=== PATIENT | female | born 1940 | race Two or more races ===

== ENCOUNTER 2018-05-31 07:20 | Outpatient (CLI) | payer OTHER | END 2018-05-31 09:20 | disposition home or self-care (01) | LOC: NUCLEAR 07:20 | DX: I10 Essential (primary) hypertension (principal); R07.89 Other chest pain; R94.31 Abnormal electrocardiogram [ECG] [EKG] | CPT/HCPCS: 78452; 93017; A9500; J0153 ==

== ENCOUNTER 2020-07-22 12:28 | Outpatient (CLI) | payer OTHER | END 2020-07-22 12:30 | disposition home or self-care (01) | LOC: SONOGRAMA 12:28 | PROVIDERS: ATTEND Pathology Anatomic Pathology & Clinical Pathology | DX: D34 Benign neoplasm of thyroid gland (principal); E06.3 Autoimmune thyroiditis ==